=== PATIENT | female | born 1940 | race Caucasian/White ===

== ENCOUNTER → 2016-09-09 | Outpatient (CLI) | payer MEDICARE, MEDICAID ==
--- NOTE | 2016-09-09 11:27 | RADIOLOGY REPORT (SQ) ---
EXAM DESCRIPTION: VENOUS UNILATERAL LOWER COMPLETED DATE/TIME: 09/09/2016 11:09 am REASON FOR STUDY: LLE PAIN, SWELLING M79.605 PAIN IN LEFT LEG COMPARISON: None. TECHNIQUE: Dynamic and static kessler scale and color images acquired of the left leg venous system. Se lected spectral images acquired with additional compression and augmentation maneuvers. The contralat eral common femoral vein and saphenofemoral junction were also imaged. Images stored on PACS. LIMITATIONS: None. FINDINGS: COMMON FEMORAL: Normal phasicity, compression and augmentation. No visualized echogenic ma terial on kessler scale. No defects on color images. FEMORAL: Normal compression and augmentation. No visualized echogenic material on kessler scale. No defe cts on color images. POPLITEAL: Normal compression, augmentation. No visualized echogenic material on kessler scale. No defec ts on color images. CALF VESSELS: Normal compression, augmentation. No visualized echogenic material on kessler scale. No de fects on color images. GSV and SSV: Normal compression, augmentation. No visualized echogenic material on kessler scale. No def ects on color images. ANY DEEP VENOUS INSUFFICIENCY: Not evaluated. ANY EVIDENCE OF POPLITEAL CYST: No. OTHER: No other significant finding. CONTRALATERAL COMMON FEMORAL VEIN AND SAPHENOFEMORAL JUNCTION: Normal phasicity, compression and augmentation. No visualized echogenic material on kessler scale. No de fects on color images. IMPRESSION: NO EVIDENCE DVT OR SVT IN THE LEFT LEG. TECHNICAL DOCUMENTATION: JOB ID: [id number] [employer]- All Rights Reserved
== END ==
LOC: SP 10:17
PROVIDERS: ATTEND Physician Assistant
DX: M79.605 Pain in left leg (principal); R60.9 Edema, unspecified
CPT/HCPCS: 93971

== ENCOUNTER → 2016-11-07 | Outpatient (CLI) | payer MEDICARE, MEDICAID ==
--- NOTE | 2016-11-07 16:39 | RADIOLOGY REPORT (SQ) ---
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 NUMBER OF VIEWS: Two views. TECHNIQUE: AP pelvis and additional frog-leg view of the right hip. LIMITATIONS: None. FINDINGS: MINERALIZATION: Normal. RIGHT HIP: No fracture or dislocation. No worrisome bone lesions. LEFT HIP: No fracture or dislocation. No worrisome bone lesions. PUBIS AND ISCHIUM: No fracture. PELVIS: No fracture. SACRUM: No fracture or dislocation. No worrisome bone lesions. LOWER LUMBAR SPINE: No fracture or dislocation. No worrisome bone lesions. No significant disc disea se. SOFT TISSUES: No findings. OTHER: No other significant finding. IMPRESSION: NEGATIVE STUDY OF THE RIGHT HIP. NO RADIOGRAPHIC EVIDENCE OF ACUTE INJURY. TECHNICAL DOCUMENTATION: JOB ID: [id number] [employer]- All Rights Reserved
== END ==
LOC: RAD 12:47
PROVIDERS: ATTEND Pain Medicine Interventional Pain Medicine
DX: M25.551 Pain in right hip (principal); G44.1 Vascular headache, not elsewhere classified
CPT/HCPCS: 36415; 85652; 86140

== ENCOUNTER → 2016-12-22 | Outpatient (CLI) | payer MEDICARE, MEDICAID ==
--- NOTE | 2016-12-23 08:33 | XCELERA REPORT ---
[address] [address] Lower Extremity Arterial Evaluation Name: SHARI MONTEIRO Age: 76 yrs Gender: Female : 1940 Patient Status: Outpatient Patient Location: Study Date: 12/22/2016 10:02 AM Procedure: A color flow and duplex scan of the lower extremity arteries was performed bilaterally with velocity and waveform anaylsis. Could not tolerate TOÑO's because of discomfort. Reason For Study: ULCER Ordering Physician: SUSY MANZANARES Performed By: Aby Guillaume Measurements and Calculations Right Left IRON PLASTIC BULLET MAKER PSV 111.4 129.6 cm/sec Prox PFA PSV -71.2 -50.8 cm/sec Prox SFA PSV -83.4 122.4 cm/sec Mid SFA PSV -95.6 -116.9 cm/sec Dist SFA PSV -94.7 -110.3 cm/sec Prox Pop A PSV 86.9 79.3 cm/sec Dist MARY JO PSV 113.6 91.9 cm/sec Dist TRAY DELIVERY AIDE PSV 132.9 118.6 cm/sec Vikas Pedis PSV 110.0 59.8 cm/sec Right Side Arterial Evaluation Normal velocity and triphasic waveforms noted from the Common Femoral artery to the infrageniculate vessels. 0 % stenosis . Ankle Brachial index not done due to discomfort. Left Side Arterial Evaluation Normal velocity and triphasic waveforms noted in the Common Femoral artery Otherwise biphasic with well preserved velocities to the infrageniculate vessels. 0-19 % stenosis . At the Femoral artery. Ankle Brachial index not done due to discomfort. Interpretation Summary No hemodynamically significant lesions in the right lower extremity only, on duplex imaging, at rest. Mild hemodynamically significant lesions in the left lower extremity only, on duplex imaging, at rest. : SUSY MANZANARES > Susy Manzanares
--- NOTE | 2016-12-23 08:44 | XCELERA REPORT ---
[address] [address] Lower Extremity Venous Evaluation Name: SHARI MONTEIRO Age: 76 yrs Gender: Female : 1940 Patient Status: Outpatient Patient Location: Study Date: 12/22/2016 10:35 AM Procedure: A bilateral duplex scan of the lower extremity veins was performed. The evaluation included responses to compression and other maneuvers with patient in the supine and standing positions to assess venous insufficiency. Reason For Study: ULCER Ordering Physician: SUSY MANZANARES Performed By: Aby Guillaume Right Sided Venous Evaluation Deep venous system evaluatiion shows patent veins with no obstruction or significant reflux identified. Sapheno Femoral junction: no reflux. Femoral vein reflux: no reflux. Greater Saphenous vein, Proximal thigh: reflux: no reflux. Greater Saphenous vein, Distal thigh: reflux: no reflux. Greater Saphenous vein, Proximal below knee: reflux: no reflux. No significant Perforators identified. Left Sided Venous Evaluation Deep venous system evaluatiion shows patent veins with no obstruction or significant reflux identified. Sapheno Femoral junction: no reflux. Femoral vein reflux: no reflux. Greater Saphenous vein, Proximal thigh: reflux: no reflux. Greater Saphenous vein, Distal thigh: reflux: no reflux. Greater Saphenous vein, Proximal below knee: reflux: no reflux. No significant Perforators identified. Interpretation Summary No duplex evidence of DVT or obstruction in the bilateral lower extremities. No significant deep or superficial reflux. : SUSY MANZANARES > Susy Manzanares
== END ==
LOC: SP 09:54
PROVIDERS: ATTEND Surgery
DX: L97.222 Non-pressure chronic ulcer of left calf with fat layer exposed (principal)
CPT/HCPCS: 93925; 93970

== ENCOUNTER → 2017-07-25 | Outpatient (CLI) | payer MEDICARE, MEDICAID ==
--- NOTE | 2017-07-26 08:11 | XCELERA REPORT ---
[address] [address] Lower Extremity Venous Evaluation Name: SHARI MONTEIRO Age: 77 yrs Gender: Female : 1940 Patient Status: Outpatient Patient Location: Study Date: 07/25/2017 02:37 PM Procedure: A bilateral duplex scan of the lower extremity veins was performed. The evaluation included responses to compression and other maneuvers with patient in the supine and standing positions to assess venous insufficiency. Reason For Study: ULCER Ordering Physician: YVONNE THURMAN Performed By: Kevon Cooper Right Sided Venous Evaluation Deep venous system evaluatiion shows patent veins with no obstruction or significant reflux identified. Sapheno Femoral junction: no reflux. Femoral vein reflux: no reflux. Greater Saphenous vein, Proximal thigh: reflux: no reflux. Greater Saphenous vein, Distal thigh: reflux: no reflux. Greater Saphenous vein, Proximal below knee: reflux: no reflux. No significant Perforators identified. Left Sided Venous Evaluation Deep venous system evaluatiion shows patent veins with no obstruction or significant reflux identified. Sapheno Femoral junction: no reflux. Femoral vein reflux: no reflux. Greater Saphenous vein, Proximal thigh: reflux: no reflux. Greater Saphenous vein, Distal thigh: reflux: no reflux. Greater Saphenous vein, Proximal below knee: reflux: no reflux. No significant Perforators identified. Interpretation Summary No duplex evidence of DVT or obstruction in the bilateral lower extremities. No significant deep or superficial reflux. : YVONNE THURMAN > Dayton Manzanares
--- NOTE | 2017-07-28 08:19 | XCELERA REPORT ---
[address] [address] Lower Extremity Arterial Evaluation Name: SHARI MONTEIRO Age: 77 yrs Gender: Female : 1940 Patient Status: Outpatient Patient Location: Study Date: 07/25/2017 02:08 PM Procedure: A color flow and duplex scan of the lower extremity arteries was performed bilaterally with velocity and waveform anaylsis. Reason For Study: ULCER Ordering Physician: YVONNE THURMAN Performed By: Kevon Cooper Measurements and Calculations Right Left SUPERVISOR FLOOR ASSEMBLY PSV 137.5 120.8 cm/sec Prox PFA PSV -88.9 144.6 cm/sec Prox SFA PSV 88.2 131.3 cm/sec Mid SFA PSV -118.0 -113.1 cm/sec Dist SFA PSV -94.3 -118.0 cm/sec Prox Pop A PSV 96.5 68.4 cm/sec Dist MARY JO PSV 108.6 70.7 cm/sec Dist AIR TRAFFIC COORDINATOR PSV 121.9 111.9 cm/sec Vikas Pedis PSV -90.8 36.9 cm/sec Right Side Arterial Evaluation Normal velocity and triphasic waveforms noted from the Common Femoral artery to the infrageniculate vessels. 0 % stenosis . Ankle Brachial index was not done due to pain. Left Side Arterial Evaluation Normal velocity and triphasic waveforms noted from the Common Femoral artery to the Popliteal artery . Biphasic in the infrageniculate vessels, with normal velocities, spectral broadening 20-49 % stenosis in the infrageniculate vessels. Ankle Brachial index was not done due to pain. Interpretation Summary No hemodynamically significant lesions in the right lower extremity only, on duplex imaging, at rest. Moderate hemodynamically significant lesions in the left lower extremity only, on duplex imaging, at rest. : YVONNE THURMAN > Dayton Manzanares
== END ==
LOC: SP 13:44
PROVIDERS: ATTEND Nurse Practitioner
DX: L97.211 Non-pressure chronic ulcer of right calf limited to breakdown of skin (principal); I87.2 Venous insufficiency (chronic) (peripheral)
CPT/HCPCS: 93925; 93970

== ENCOUNTER 2017-08-02 15:38 | Emergency (ER) | payer MEDICARE, MEDICAID ==
[2017-08-02 15:49] VITALS: BP 179/84
[2017-08-02] MEDS ORDERED: CLINDAMYCIN 600 MG/D5W RTU 600 MG/50 ML RTUPB IV ONE (16:02)
--- NOTE | 2017-08-02 16:04 | ER Document Report ---
ED Medical Screen (RME) - General Chief Complaint: Leg Swelling Stated Complaint: LEG SWELLING Time Seen by Provider: 08/02/17 16:03 Notes: The patient is a 77-year-old female, past medical history of venous stasis ulcers, presents from the wound care center after she is having increased redness and swelling of her bilateral legs around her ulcers. There is concern for bilateral cellulitis by the wound care nurse she was sent to the ER due to her extensive antibiotic allergies. PE: B/L lower leg erythema up to knees, strong distal pulses, afebrile I have greeted and performed a rapid initial assessment of this patient. A comprehensive ED assessment and evaluation of the patient, analysis of test results and completion of the medical decision making process will be conducted by additional ED providers. TRAVEL OUTSIDE OF THE [place] IN LAST 30 DAYS: No - Related Data Allergies/Adverse Reactions: lidocaine [Lidocaine] Allergy (Severe, Verified 08/02/17 15:39) facial swelling to includes eyes morphine [Morphine] Allergy (Severe, Verified 08/02/17 15:39) swelling to include face cephalexin monohydrate [From Keflex] Allergy (Intermediate, Verified 08/02/17 15 :39) rash, swelling in hands ciprofloxacin [From Cipro] Allergy (Intermediate, Verified 08/02/17 15:39) rash, all over swelling to exclude face epinephrine [Epinephrine] Allergy (Intermediate, Verified 08/02/17 15:39) facial swelling to includes eyes Sulfa (Sulfonamide Antibiotics) Allergy (Intermediate, Verified 08/02/17 15:39) Hives DARWIN Inhibitors [Darwin Inhibitors] Allergy (Mild, Verified 08/02/17 15:39) rash,cough adhesive tape [Adhesive Tape] Allergy (Mild, Verified 08/02/17 15:39) rash amoxicillin [Amoxicillin] Allergy (Mild, Verified 08/02/17 15:39) rash Penicillins Allergy (Mild, Verified 08/02/17 15:39) rash Potassium Clavulanate * [From Augmentin] Allergy (Mild, Verified 08/02/17 15:39) rash amoxicillin trihydrate [From Augmentin] Allergy (Verified 08/02/17 15:39) rash ciprofloxacin HCl [From Cipro] Allergy (Verified 08/02/17 15:39) latex [Latex] Allergy (Verified 08/02/17 15:39) itchy rash Past Medical History - Social History Chew tobacco use (# tins/day): No Frequency of alcohol use: None Drug Abuse: None - Past Medical History Cardiac Medical History: Reports: Hx Hypertension Denies: Hx Heart Attack, Hx Peripheral Vascular Disease, Hx Pulmonary Embolism Pulmonary Medical History: Denies: Hx Asthma Neurological Medical History: Denies: Hx Cerebrovascular Accident, Hx Seizures Renal/ Medical History: Denies: Hx Peritoneal Dialysis GI Medical History: Reports: Hx Gastroesophageal Reflux Disease. Denies: Hx Hepatitis, Hx Hiatal Hernia, Hx Ulcer Infectious Medical History: Denies: Hx Hepatitis Past Surgical History: Reports: Hx Cholecystectomy, Hx Orthopedic Surgery - Both Arms Fx, Left Leg Fx 1999, 2006, Hx Tubal Ligation. Denies: Hx Hysterectomy, Hx Mastectomy, Hx Open Heart Surgery, Hx Pacemaker - Immunizations Hx Diphtheria, Pertussis, Tetanus Vaccination: Yes Physical Exam - Vital signs Vitals: Temp Pulse Resp BP Pulse Ox 97.5 F 66 14 179/84 H 99 08/02/17 15:46 08/02/17 15:46 08/02/17 15:46 08/02/17 15:46 08/02/17 15:46 Course - Vital Signs Vital signs: Temp Pulse Resp BP Pulse Ox 97.5 F 66 14 179/84 H 99 08/02/17 15:46 08/02/17 15:46 08/02/17 15:46 08/02/17 15:46 08/02/17 15:46 Doctor's Discharge - Discharge Referrals: SUSY BLOCK MD [Primary Care Provider] - Follow up as needed
[2017-08-02 16:54] LABS: ABSOLUTE EOSINOPHILS # (AUTO) 0.1 10^3/uL (0.0-0.6); ABSOLUTE LYMPHOCYTES (AUTO) 1.2 10^3/uL (0.5-4.7); ABSOLUTE MONOCYTES (AUTO) 0.4 10^3/uL (0.1-1.4); ABSOLUTE NEUT (AUTO) 2.7 10^3/uL (1.7-8.2); BASOPHILS % (AUTO) 0.8 % (0-2); EOSINOPHILS % (AUTO) 2.4 % (0-6); HEMATOCRIT 37.9 % (36.0-47.0); HEMOGLOBIN 12.4 g/dL (12.0-15.5); LYMPHOCYTES % (AUTO) 27.4 % (13-45); MEAN CORPUSCULAR HEMOGLOBIN 28.9 pg (27.0-33.4); MEAN CORPUSCULAR HGB CONC 32.7 g/dL (32.0-36.0); MEAN CORPUSCULAR VOLUME 88 fl (80-97); MONOCYTES % (AUTO) 9.7 % (3-13); PLATELET COUNT 141 10^3/uL (150-450); RED BLOOD COUNT 4.28 10^6/uL (3.72-5.28); RED CELL DISTRIBUTION WIDTH 14.5 % (11.5-14.0); SEGMENTED NEUTROPHILS % (AUTO) 59.7 % (42-78); TOTAL CELLS COUNTED % (AUTO) 100 %; WHITE BLOOD COUNT 4.5 10^3/uL (4.0-10.5)
[2017-08-02 17:08] LABS: ALANINE AMINOTRANSFERASE 22 U/L (9-52); ALBUMIN 4.3 g/dL (3.5-5.0); ALKALINE PHOSPHATASE 64 U/L (38-126); ANION GAP 11 (5-19); ASPARTATE AMINO TRANSFERASE 25 U/L (14-36); BILIRUBIN,DIRECT 0.4 mg/dL (0.0-0.4); BILIRUBIN,TOTAL 0.4 mg/dL (0.2-1.3); BLOOD UREA NITROGEN 16 mg/dL (7-20); CALCIUM 10.1 mg/dL (8.4-10.2); CARBON DIOXIDE 29 mmol/L (22-30); CHLORIDE 107 mmol/L (98-107); GLUCOSE 82 mg/dL (75-110); POTASSIUM 3.9 mmol/L (3.6-5.0); SODIUM 147.2 mmol/L (137-145); TOTAL PROTEIN 7.1 g/dL (6.3-8.2)
--- NOTE | 2017-08-02 17:58 | ER Document Report ---
ED General - General Chief Complaint: Leg Swelling Stated Complaint: LEG SWELLING Time Seen by Provider: 08/02/17 16:03 TRAVEL OUTSIDE OF THE [place] IN LAST 30 DAYS: No - HPI Patient complains to provider of: Cellulitis Notes: Patient coming in for evaluation of cellulitic process in the lower extremities. Patient has a history of venous stasis ulcers patient states erythema of the lower shins bilaterally has worsened over the last 3 days. Patient was seen by wound care and encouraged to come to the ER for further evaluation. Denies fevers chills nausea vomiting diarrhea denies any chest pain abdominal pain. Patient states last antibiotics she was on was up proximally 2 weeks ago. Patient also does complain of a yeast infection and is requesting Diflucan for treatment. Patient states last antibiotic was doxycycline which did improve her legs. Patient denies any pain any travel - Related Data Allergies/Adverse Reactions: lidocaine [Lidocaine] Allergy (Severe, Verified 08/02/17 15:39) facial swelling to includes eyes morphine [Morphine] Allergy (Severe, Verified 08/02/17 15:39) swelling to include face cephalexin monohydrate [From Keflex] Allergy (Intermediate, Verified 08/02/17 15 :39) rash, swelling in hands ciprofloxacin [From Cipro] Allergy (Intermediate, Verified 08/02/17 15:39) rash, all over swelling to exclude face epinephrine [Epinephrine] Allergy (Intermediate, Verified 08/02/17 15:39) facial swelling to includes eyes Sulfa (Sulfonamide Antibiotics) Allergy (Intermediate, Verified 08/02/17 15:39) Hives DARWIN Inhibitors [Darwin Inhibitors] Allergy (Mild, Verified 08/02/17 15:39) rash,cough adhesive tape [Adhesive Tape] Allergy (Mild, Verified 08/02/17 15:39) rash amoxicillin [Amoxicillin] Allergy (Mild, Verified 08/02/17 15:39) rash Penicillins Allergy (Mild, Verified 08/02/17 15:39) rash Potassium Clavulanate * [From Augmentin] Allergy (Mild, Verified 08/02/17 15:39) rash amoxicillin trihydrate [From Augmentin] Allergy (Verified 08/02/17 15:39) rash bacitracin [From Neosporin ([id number])] Allergy (Verified 08/02/17 16:03) ciprofloxacin HCl [From Cipro] Allergy (Verified 08/02/17 15:39) latex [Latex] Allergy (Verified 08/02/17 15:39) itchy rash neomycin [From Neosporin ([id number])] Allergy (Verified 08/02/17 16:03) nitrofurantoin [From Macrobid] Allergy (Verified 08/02/17 16:03) polymyxin B [From Neosporin ([id number])] Allergy (Verified 08/02/17 16:03) Past Medical History - Social History Smoking Status: Never Smoker Chew tobacco use (# tins/day): No Frequency of alcohol use: None Drug Abuse: None Family History: Reviewed & Not Pertinent Patient has suicidal ideation: No Patient has homicidal ideation: No - Past Medical History Cardiac Medical History: Reports: Hx Hypertension Denies: Hx Heart Attack, Hx Peripheral Vascular Disease, Hx Pulmonary Embolism Pulmonary Medical History: Denies: Hx Asthma Neurological Medical History: Denies: Hx Cerebrovascular Accident, Hx Seizures Renal/ Medical History: Denies: Hx Peritoneal Dialysis GI Medical History: Reports: Hx Gastroesophageal Reflux Disease. Denies: Hx Hepatitis, Hx Hiatal Hernia, Hx Ulcer Infectious Medical History: Denies: Hx Hepatitis Past Surgical History: Reports: Hx Cholecystectomy, Hx Neurologic Surgery - gamma knife surgery head, Hx Orthopedic Surgery - Both Arms Fx, Left Leg Fx 1999 , 2006, Hx Tubal Ligation. Denies: Hx Hysterectomy, Hx Mastectomy, Hx Open Heart Surgery, Hx Pacemaker - Immunizations Hx Diphtheria, Pertussis, Tetanus Vaccination: Yes Review of Systems - Review of Systems Constitutional: No symptoms reported EENT: No symptoms reported Cardiovascular: No symptoms reported Respiratory: No symptoms reported Gastrointestinal: No symptoms reported Genitourinary: No symptoms reported Female Genitourinary: No symptoms reported Musculoskeletal: No symptoms reported Skin: Other - Cellulitic process Hematologic/Lymphatic: No symptoms reported Neurological/Psychological: No symptoms reported -: Yes All other systems reviewed and negative Physical Exam - Vital signs Vitals: Temp Pulse Resp BP Pulse Ox 97.5 F 66 14 179/84 H 99 08/02/17 15:46 08/02/17 15:46 08/02/17 15:46 08/02/17 15:46 08/02/17 15:46 Interpretation: Normal - General General appearance: Appears well, Alert - HEENT Head: Normocephalic, Atraumatic Eyes: Normal Pupils: PERRL - Respiratory Respiratory status: No respiratory distress Chest status: Nontender Breath sounds: Normal Chest palpation: Normal - Cardiovascular Rhythm: Regular Heart sounds: Normal auscultation Murmur: No - Abdominal Inspection: Normal Distension: No distension Bowel sounds: Normal Tenderness: Nontender Organomegaly: No organomegaly - Back Back: Normal, Nontender - Extremities General upper extremity: Normal inspection, Nontender, Normal color, Normal ROM , Normal temperature General lower extremity: Nontender, Normal color, Normal ROM, Normal temperature , Normal weight bearing. No: Normal inspection - Bilateral erythema with some weeping of the skin consistent with patient's history of chronic venous stasis ulcers. There is no purulent material 1-2+ edema bilaterally erythema extends from top of the ankle mortise to the midshin bilaterally skin is warm, Lucia's sign - Neurological Neuro grossly intact: Yes Cognition: Normal Orientation: AAOx4 Hubert Coma Scale Eye Opening: Spontaneous [place] Coma Scale Verbal: Oriented [place] Coma Scale Motor: Obeys Commands [place] Coma Scale Total: 15 Speech: Normal Motor strength normal: LUE, RUE, LLE, RLE Sensory: Normal - Psychological Associated symptoms: Normal affect, Normal mood - Skin Skin Temperature: Warm Skin Moisture: Dry Skin Color: Normal Course - Re-evaluation Re-evalutation: 08/02/17 23:01 Patient presents with a cellulitic process was given an IV dose of clindamycin. Otherwise laboratory studies vital signs not show any signs of sepsis or toxic state of the patient. Patient is request to be discharged home patient does have good follow-up and home health care nurse the areas of the ciliary processes were marked patient was able to tolerate p.o. we will get be given a prescription for clindamycin patient was encouraged to return if fevers or worsening of infection occurs 08/02/17 23:02 At the patient's urging request did give the patient a dose of Diflucan here and also prescription for after she finishes the clindamycin she developed - Vital Signs Vital signs: Temp Pulse Resp BP Pulse Ox 97.5 F 66 14 179/84 H 99 08/02/17 15:46 08/02/17 15:46 08/02/17 15:46 08/02/17 15:46 08/02/17 15:46 - Laboratory Result Diagrams: 08/02/17 16:40 08/02/17 16:40 Laboratory results interpreted by me: 08/02/17 08/02/17 16:40 16:40 RDW 14.5 H Plt Count 141 L Sodium 147.2 H Est GFR (Non-Af Amer) 52 L Discharge - Discharge Clinical Impression: Cellulitis Qualifiers: Site of cellulitis: extremity Site of cellulitis of extremity: lower extremity Laterality: unspecified laterality Qualified Code(s): L03.119 - Cellulitis of unspecified part of limb Condition: Good Disposition: HOME, SELF-CARE Instructions: Cellulitis ([facility]), Clindamycin ([facility]) Additional Instructions: Your examination today is consistent with a cellulitis or skin suction. Please take the clindamycin as prescribed. Please be aware that this may cause diarrhea I would highly recommend taking yogurt or a [id number] probiotic to aid in relief of your diarrhea. Return to ER symptoms worsen follow-up with your primary care physician in the next 3-5 days Prescriptions: Clindamycin HCl 300 mg PO QID 7 Days capsule Fluconazole [Diflucan] 100 mg PO DAILY #1 tablet Referrals: SUSY BLOCK MD [Primary Care Provider] - Follow up as needed
[2017-08-02] MEDS ORDERED: CLINDAMYCIN HCL 150 MG CAPSULE PO ONE (17:59)
[2017-08-02] MEDS ORDERED: FLUCONAZOLE 100 MG TABLET PO ONE (18:03)
== END 2017-08-02 18:21 | disposition home or self-care (01) ==
LOC: ER 15:38
DX: L03.116 Cellulitis of left lower limb (principal); L03.115 Cellulitis of right lower limb; B37.9 Candidiasis, unspecified; R60.0 Localized edema; I10 Essential (primary) hypertension; Z88.4 Allergy status to anesthetic agent; Z88.5 Allergy status to narcotic agent; Z88.1 Allergy status to other antibiotic agents; Z88.2 Allergy status to sulfonamides; Z88.8 Allergy status to other drugs, medicaments and biological substances; Z91.048 Other nonmedicinal substance allergy status; Z88.0 Allergy status to penicillin; Z91.041 Radiographic dye allergy status; Z88.3 Allergy status to other anti-infective agents
CPT/HCPCS: 99283; 96365; 36415; 87040; 85025; 80053; A9270 ×2

== ENCOUNTER → 2019-01-08 | Outpatient (CLI) | payer MEDICARE, MEDICAID | LOC: RAD 11:07 | PROVIDERS: ATTEND Nurse Practitioner Family | DX: L97.212 Non-pressure chronic ulcer of right calf with fat layer exposed (principal); L97.222 Non-pressure chronic ulcer of left calf with fat layer exposed | CPT/HCPCS: 93922; 93925 ==